=== PATIENT | male | born 1990 | race American Indian/Alaskan Native ===

== ENCOUNTER 2018-12-15 09:24 | Emergency (ER) | payer SELFPAY ==
[2018-12-15] MEDS ORDERED: SODIUM CHLORIDE 0.9% 1000 ML 1,000 ML IV ONE (10:42)
[2018-12-15] MEDS ORDERED: KETOROLAC 30 MG/1 ML INJ IV ONE (10:43)
--- NOTE | 2018-12-15 10:48 | Emergency Department Report ---
ED General Adult HPI - General Chief complaint: Pain General Stated complaint: BODY ACHE/SORES IN MOUTH Time Seen by Provider: 12/15/18 10:37 Source: patient Mode of arrival: Ambulatory Limitations: No Limitations - History of Present Illness Initial comments: 28-year-old male with significant past medical history presents to the hospital complaining of painful sores to lip and mouth for the last 3-4 days after sleeping in his car. Patient has been able to drink or eat much secondary to pain and passed out yesterday. He complains of generalized body aches and subjective fever. He denies previous history of oral lesions. Patient has not been tested for HIV. He denies IV drug use. - Related Data Previous Rx's Medication Instructions Recorded Last Taken Type Acyclovir [Zovirax Tab] 400 mg PO Q8H 10 Days tab 12/15/18 Unknown Rx HYDROcodone/APAP 7.5-325 [[place]] 15 ml PO Q4HR PRN #20 dose 12/15/18 Unknown Rx Nystas/Diphen/Xyl Visc/Mylanta 30 ml MM Q4H PRN #30 dose 12/15/18 Unknown Rx [Magic Mouthwash] Allergies Allergy/AdvReac Type Severity Reaction Status Date / Time No Known Allergies Allergy Unverified 12/15/18 09:33 ED Review of Systems ROS: Stated complaint: BODY ACHE/SORES IN MOUTH Other details as noted in HPI Comment: All other systems reviewed and negative ED Past Medical Hx - Past Medical History Previous Medical History?: No - Surgical History Past Surgical History?: No - Social History Smoking Status: Current Every Day Smoker Substance Use Type: Alcohol, Marijuana - Medications Home Medications: Home Medications Medication Instructions Recorded Confirmed Last Taken Type Acyclovir [Zovirax Tab] 400 mg PO Q8H 10 Days tab 12/15/18 Unknown Rx HYDROcodone/APAP 7.5-325 [[place]] 15 ml PO Q4HR PRN #20 dose 12/15/18 Unknown Rx Nystas/Diphen/Xyl Visc/Mylanta 30 ml MM Q4H PRN #30 dose 12/15/18 Unknown Rx [Magic Mouthwash] ED Physical Exam - General Limitations: No Limitations - Other Other exam information: Gen.: No acute distress Head: Atraumatic Eyes: Normal appearance ENT: Patient has multiple ulcerations to his lips. No ulcerations noted to be 2 mucosa or tongue. ulceratons noted to posterior phayrnx. Neck: Normal appearance, no posterior midline tenderness, no meningismus Chest: Clear to auscultation bilaterally Cardiovascular: Tachycardic regular rhythm Abdomen: Normal appearance, soft, nontender, no rebound or guarding, normal bowel sounds Back: Normal appearance, nontender Extremity: Full range of motion, normal appearance Neuro: Alert, clear speech, no focal motor or sensory deficit Psychiatric: Appropriate Skin: Patient has a open circular lesion with erythematous base on right forearm finger of left hand ED Course Vital Signs 12/15/18 12/15/18 12/15/18 09: 11:43 13:10 Temperature 99.1 F Pulse Rate 115 H Respiratory 18 18 18 Rate Blood Pressure 119/79 Blood Pressure [Left] O2 Sat by Pulse 99 Oximetry 12/15/18 13:35 Temperature 99.1 F Pulse Rate 97 H Respiratory 16 Rate Blood Pressure Blood Pressure 140/85 [Left] O2 Sat by Pulse 100 Oximetry - Consultations Consultation #1: 12/15/18 11:[address] Murphy MOULTON who recommends HIV testing ED Medical Decision Making - Lab Data Result diagrams: 12/15/18 10:51 12/15/18 10:44 Lab Results 12/15/18 12/15/18 Range/Units 10:44 10:51 WBC 9.2 (4.5-11.0) K/mm3 RBC 5.10 H (3.65-5.03) M/mm3 Hgb 14.6 (11.8-15.2) gm/dl Hct 44.6 (35.5-45.6) % MCV 88 (84-94) fl MCH 29 (28-32) pg MCHC 33 (32-34) % RDW 14.6 (13.2-15.2) % Plt Count 198 (140-440) K/mm3 Lymph % (Auto) 6.8 L (13.4-35.0) % [place] % (Auto) 10.7 H (0.0-7.3) % Eos % (Auto) 1.7 (0.0-4.3) % Baso % (Auto) 0.5 (0.0-1.8) % Lymph # 0.6 L (1.2-5.4) K/mm3 [place] # 1.0 H (0.0-0.8) K/mm3 Eos # 0.2 (0.0-0.4) K/mm3 Baso # 0.0 (0.0-0.1) K/mm3 Seg Neutrophils % 80.3 H (40.0-70.0) % Seg Neutrophils # 7.4 (1.8-7.7) K/mm3 Sodium 138 (137-145) mmol/L Potassium 4.6 (3.6-5.0) mmol/L Chloride 99.3 (98-107) mmol/L Carbon Dioxide 26 (22-30) mmol/L Anion Gap 17 mmol/L BUN 12 (9-20) mg/dL Creatinine 0.8 (0.8-1.5) mg/dL Estimated GFR > 60 ml/min BUN/Creatinine Ratio 15 % Glucose 108 H (75-100) mg/dL Calcium 9.0 (8.4-10.2) mg/dL Total Bilirubin 0.80 (0.1-1.2) mg/dL AST 17 (5-40) units/L ALT 23 (7-56) units/L Alkaline Phosphatase 74 (35-129) units/L Total Protein 8.1 (6.3-8.2) g/dL Albumin 4.4 (3.9-5) g/dL Albumin/Globulin Ratio 1.2 % - Medical Decision Making She presents to multiple oral ulcerations. I'm concerned for immunocompromise state such as HIV/AIDS. Outpatient HIV testing recommended since it is a send out from the emergency department and patient does not meet admission criteria at this time. He is able to tolerate by mouth. Positive pain reduction with meds. Heart rate improved with 1 L of normal saline. He will be treated for herpes with analgesia and outpatient follow-up information provided. - Differential Diagnosis herpes, apthous ulcer, immunocompromise, dehydration Critical Care Time: No Critical care attestation.: If time is entered above; I have spent that time in minutes in the direct care of this critically ill patient, excluding procedure time. ED Disposition Clinical Impression: Oral lesion, Herpes pharyngitis Disposition: - TO HOME OR SELFCARE Is pt being admited?: No Does the pt Need Aspirin: No Condition: Stable Instructions: Oral Herpes Simplex Virus Infections (ED) Additional Instructions: Take the medication as prescribed. Follow-up with your doctor or with the doctor/clinic provided. Return if symptoms worsen as indicated by your discharge instructions. It is very important that you are tested for HIV. Prescriptions: Nystas/Diphen/Xyl Visc/Mylanta [Magic Mouthwash] 30 ml MM Q4H PRN #30 dose PRN Reason: Pain , Severe (7-10) HYDROcodone/APAP 7.5-325 [[place]] 15 ml PO Q4HR PRN #20 dose PRN Reason: Pain Acyclovir [Zovirax Tab] 400 mg PO Q8H 10 Days tab Referrals: [facility] [Outside] - 3-5 Days PRIMARY CAREMD [Primary Care Provider] - 3-5 Days [facility] [Provider Group] - 3-5 Days RUMA WING MD [Staff Physician] - 3-5 Days Time of Disposition: 13:39
[2018-12-15 11:00] LABS: Basophils % (Auto) 0.5 % (0.0-1.8); Eosinophils # (Auto) 0.2 K/mm3 (0.0-0.4); Eosinophils % (Auto) 1.7 % (0.0-4.3); Hematocrit 44.6 % (35.5-45.6); Hemoglobin 14.6 gm/dl (11.8-15.2); Lymphocytes # (Auto) 0.6 K/mm3 (1.2-5.4); Lymphocytes % (Auto) 6.8 % (13.4-35.0); Mean Corpuscular HGB Conc 33 % (32-34); Mean Corpuscular Volume 88 fl (84-94); Monocytes % (Auto) 10.7 % (0.0-7.3); Platelet Count 198 K/mm3 (140-440); Red Cell Distribution Width 14.6 % (13.2-15.2)
[2018-12-15 11:18] LABS: Alanine Aminotransferase 23 units/L (7-56); Albumin 4.4 g/dL (3.9-5); BUN/Creatinine Ratio 15; Blood Urea Nitrogen 12 mg/dL (9-20); Hemolysis Index 12
[2018-12-15] MEDS ORDERED: LIDOCAINE VISCOUS 2% 15 ML ORAL LIQD PO ONE (11:31)
[2018-12-15] MEDS ORDERED: ACYCLOVIR 800 MG TAB PO ONE (12:00)
[2018-12-15] MEDS ORDERED: HYDROmorphone 1 MG/1 ML INJ IV ONE (12:58)
[2018-12-15] MEDS ORDERED: ONDANSETRON 4 MG/2 ML INJ IV ONE (12:58)
[2018-12-15 13:35] VITALS: BP 140/85
== END 2018-12-15 13:58 | disposition home or self-care (01) ==
LOC: ED 09:24
DX: B00.2 Herpesviral gingivostomatitis and pharyngotonsillitis (principal); M79.10 Myalgia, unspecified site; F17.200 Nicotine dependence, unspecified, uncomplicated; F12.10 Cannabis abuse, uncomplicated
CPT/HCPCS: 36415; 80053; 85025; 96374; 96375; 99283; J1170; J1885; J2405; J7030